=== PATIENT | male | born 1975 | race Caucasian/White ===

== ENCOUNTER 2017-05-09 15:26 | Inpatient (IN) | payer MEDICAID ==
[2017-05-21] MEDS ORDERED: BISACODYL 10 MG SUPP PR PRN (15:07)
[2017-05-21] MEDS: BACLOFEN 20 MG TAB PO SCH ×2 (15:49→23:08)
[2017-05-21] MEDS: MIDODRINE HCL 5 MG TAB PO SCH ×2 (15:49→21:42)
[2017-05-21] MEDS: ACETAMINOPHEN 500 MG TAB PO SCH ×2 (15:49→23:30)
[2017-05-21] MEDS: METHOCARBAMOL 500 MG TAB PO SCH ×2 (15:49→21:41)
[2017-05-21] MEDS: oxyCODONE IR 15 MG TAB PO PRN ×2 (15:50→21:40)
[2017-05-21] MEDS ORDERED: SENNOSIDES/DOCUSATE SODIUM TAB PO PRN (16:16)
--- NOTE | 2017-05-21 16:28 | PDOREHIP ---
Admission [facility] - Admission - 3 Day Assessment Period Admission Date/Day 1: 05/21/17 Day 2: 05/22/17 Day 3: 05/23/17 - Active Diagnoses Comorbidities and Co-existing Conditions at Admission: 10609. None of the Above - Skin Conditions Unhealed Pressure Ulcer (1 or more/Stage 1 or >)-Admission: 0. No
--- NOTE | 2017-05-21 16:28 | PDOREHIP ---
Admission [facility] - Admission - 3 Day Assessment Period Admission Date/Day 1: 05/21/17 Day 2: 05/22/17 Day 3: 05/23/17 - Active Diagnoses Comorbidities and Co-existing Conditions at Admission: 65213. None of the Above - Skin Conditions Unhealed Pressure Ulcer (1 or more/Stage 1 or >)-Admission: 0. No
--- NOTE | 2017-05-21 16:28 | PDOREHIP ---
Admission [facility] - Admission - 3 Day Assessment Period Admission Date/Day 1: 05/21/17 Day 2: 05/22/17 Day 3: 05/23/17 - Active Diagnoses Comorbidities and Co-existing Conditions at Admission: 72442. None of the Above - Skin Conditions Unhealed Pressure Ulcer (1 or more/Stage 1 or >)-Admission: 0. No
[2017-05-21] MEDS ORDERED: SENNOSIDES/DOCUSATE SODIUM TAB PO SCH (21:00)
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
[2017-05-21] MEDS: GABAPENTIN 400 MG CAP PO SCH (21:39)
[2017-05-21] MEDS: POLYETHYLENE GLYCOL 3350 17 GM PKT PO SCH (21:47)
[2017-05-22] MEDS: oxyCODONE IR 15 MG TAB PO PRN (02:00)
[2017-05-22] MEDS: DIAZEPAM 5 MG TAB PO PRN (04:56)
[2017-05-22] MEDS: oxyCODONE IR 5 MG TAB PO PRN ×5 (04:56→19:43)
[2017-05-22] MEDS: METHOCARBAMOL 500 MG TAB PO SCH (05:53)
[2017-05-22 07:35] LABS: PLATELET COUNT 171 10^3/uL (150-400)
[2017-05-22] MEDS: ACETAMINOPHEN 500 MG TAB PO SCH ×3 (08:12→21:57)
[2017-05-22] MEDS: GABAPENTIN 300 MG CAP PO SCH (08:12)
[2017-05-22] MEDS: ASPIRIN EC 325 MG TAB PO SCH (08:12)
[2017-05-22] MEDS: BACLOFEN 20 MG TAB PO SCH ×3 (08:12→21:59)
[2017-05-22] MEDS: ENOXAPARIN 40 MG/0.4 ML SYR SC SCH (08:18)
[2017-05-22] MEDS: MIDODRINE HCL 5 MG TAB PO SCH ×3 (08:19→15:33)
[2017-05-22] MEDS: POLYETHYLENE GLYCOL 3350 17 GM PKT PO SCH ×2 (09:25→21:59)
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
[2017-05-22] MEDS ORDERED: NITROGLYCERIN 2% 1 GM PACKET TP PRN (14:02)
[2017-05-22] MEDS ORDERED: CEPACOL LOZENGE PO PRN (15:59)
[2017-05-22] MEDS ORDERED: BIOTENE DRY MOUTH MOUTHWASH 237 ML BTL MM PRN (15:59)
[2017-05-22] MEDS: GABAPENTIN 400 MG CAP PO SCH (21:59)
[2017-05-22] MEDS ORDERED: NITROGLYCERIN 2% 1 GM PACKET TP ONE (22:03)
[2017-05-23] MEDS: oxyCODONE IR 5 MG TAB PO PRN ×6 (00:22→21:59)
[2017-05-23] MEDS ORDERED: BISACODYL 10 MG SUPP PR SCH ×2 (06:00→15:30)
[2017-05-23] MEDS: ACETAMINOPHEN 500 MG TAB PO SCH ×3 (08:36→21:59)
[2017-05-23] MEDS: BACLOFEN 20 MG TAB PO SCH ×3 (08:37→22:00)
[2017-05-23] MEDS: ASPIRIN EC 325 MG TAB PO SCH (08:37)
[2017-05-23] MEDS: ENOXAPARIN 40 MG/0.4 ML SYR SC SCH (08:37)
[2017-05-23] MEDS: GABAPENTIN 300 MG CAP PO SCH (08:38)
[2017-05-23] MEDS: MIDODRINE HCL 5 MG TAB PO SCH ×3 (08:38→15:34)
[2017-05-23] MEDS: POLYETHYLENE GLYCOL 3350 17 GM PKT PO SCH ×2 (08:39→21:30)
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
[2017-05-23] MEDS: GABAPENTIN 400 MG CAP PO SCH (21:35)
[2017-05-23] MEDS: METHOCARBAMOL 500 MG TAB PO PRN (21:40)
[2017-05-24] MEDS: DIAZEPAM 5 MG TAB PO PRN (00:05)
[2017-05-24] MEDS: oxyCODONE IR 5 MG TAB PO PRN ×2 (01:05→04:24)
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
[2017-05-24] MEDS: MIDODRINE HCL 5 MG TAB PO SCH ×3 (09:06→15:45)
[2017-05-24] MEDS: ACETAMINOPHEN 500 MG TAB PO SCH ×3 (09:38→21:58)
[2017-05-24] MEDS: ASPIRIN EC 325 MG TAB PO SCH (09:39)
[2017-05-24] MEDS: POLYETHYLENE GLYCOL 3350 17 GM PKT PO SCH ×2 (09:39→21:59)
[2017-05-24] MEDS: ENOXAPARIN 40 MG/0.4 ML SYR SC SCH (09:39)
[2017-05-24] MEDS: GABAPENTIN 300 MG CAP PO SCH (09:39)
[2017-05-24] MEDS: BACLOFEN 20 MG TAB PO SCH ×3 (09:39→21:59)
[2017-05-24] MEDS: SENNOSIDES 17.6 MG/10 ML UDL PO SCH (13:27)
[2017-05-24] MEDS: MAGNESIUM HYDROXIDE 30 ML UDCUP PO SCH (13:27)
[2017-05-24] MEDS ORDERED: METHYLNALTREXONE BROMIDE 12 MG/0.6 ML INJ SC ONE (17:30)
[2017-05-24] MEDS: BISACODYL 10 MG SUPP PR SCH (18:40)
[2017-05-24] MEDS: DOCUSATE SODIUM 100 MG CAP PO SCH (21:59)
[2017-05-24] MEDS: GABAPENTIN 400 MG CAP PO SCH (21:59)
[2017-05-25] MEDS: oxyCODONE IR 5 MG TAB PO PRN ×2 (04:20→21:18)
[2017-05-25] MEDS: BACLOFEN 20 MG TAB PO SCH ×3 (07:49→23:17)
[2017-05-25] MEDS: MIDODRINE HCL 5 MG TAB PO SCH ×3 (07:49→16:27)
[2017-05-25] MEDS: ACETAMINOPHEN 500 MG TAB PO SCH ×3 (07:50→23:17)
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
[2017-05-25] MEDS: ENOXAPARIN 40 MG/0.4 ML SYR SC SCH (09:46)
[2017-05-25] MEDS: ASPIRIN EC 325 MG TAB PO SCH (09:46)
[2017-05-25] MEDS: GABAPENTIN 300 MG CAP PO SCH (09:46)
[2017-05-25] MEDS: POLYETHYLENE GLYCOL 3350 17 GM PKT PO SCH ×2 (09:46→21:19)
[2017-05-25] MEDS: DOCUSATE SODIUM 100 MG CAP PO SCH ×2 (09:47→21:18)
[2017-05-25] MEDS: SENNOSIDES 17.6 MG/10 ML UDL PO SCH (14:25)
[2017-05-25] MEDS: MAGNESIUM HYDROXIDE 30 ML UDCUP PO SCH (14:25)
[2017-05-25] MEDS: BISACODYL 10 MG SUPP PR SCH (19:40)
[2017-05-25] MEDS: GABAPENTIN 400 MG CAP PO SCH (21:18)
[2017-05-26] MEDS: oxyCODONE IR 5 MG TAB PO PRN ×2 (07:49→14:53)
[2017-05-26] MEDS: ACETAMINOPHEN 500 MG TAB PO SCH ×3 (07:50→21:15)
[2017-05-26] MEDS: BACLOFEN 20 MG TAB PO SCH ×3 (07:50→21:15)
[2017-05-26] MEDS: MIDODRINE HCL 5 MG TAB PO SCH ×3 (07:57→16:28)
[2017-05-26] MEDS: POLYETHYLENE GLYCOL 3350 17 GM PKT PO SCH ×2 (07:58→20:00)
[2017-05-26] MEDS: ENOXAPARIN 40 MG/0.4 ML SYR SC SCH (07:58)
[2017-05-26] MEDS: GABAPENTIN 300 MG CAP PO SCH (07:58)
[2017-05-26] MEDS: DOCUSATE SODIUM 100 MG CAP PO SCH ×2 (07:59→20:00)
[2017-05-26] MEDS: ASPIRIN EC 325 MG TAB PO SCH (07:59)
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
[2017-05-26] MEDS: MAGNESIUM HYDROXIDE 30 ML UDCUP PO SCH ×2 (14:54→17:22)
[2017-05-26] MEDS: SENNOSIDES 17.6 MG/10 ML UDL PO SCH ×2 (14:54→17:22)
[2017-05-26] MEDS: BISACODYL 10 MG SUPP PR SCH (17:09)
[2017-05-26] MEDS: GABAPENTIN 400 MG CAP PO SCH (21:15)
[2017-05-27] MEDS: oxyCODONE IR 5 MG TAB PO PRN ×2 (00:14→03:57)
[2017-05-27] MEDS: BACLOFEN 20 MG TAB PO SCH ×4 (09:00→21:02)
[2017-05-27] MEDS ORDERED: SENNOSIDES 17.6 MG/10 ML UDL PO PRN (09:17)
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
[2017-05-27] MEDS: ASPIRIN EC 325 MG TAB PO SCH (09:58)
[2017-05-27] MEDS: ACETAMINOPHEN 500 MG TAB PO SCH ×3 (09:59→21:01)
[2017-05-27] MEDS: POLYETHYLENE GLYCOL 3350 17 GM PKT PO SCH ×2 (10:01→21:02)
[2017-05-27] MEDS: GABAPENTIN 300 MG CAP PO SCH ×4 (10:02→21:02)
[2017-05-27] MEDS: MIDODRINE HCL 5 MG TAB PO SCH ×3 (10:03→15:57)
[2017-05-27] MEDS: ENOXAPARIN 40 MG/0.4 ML SYR SC SCH (10:04)
[2017-05-27] MEDS: DOCUSATE SODIUM 100 MG CAP PO SCH ×2 (10:05→21:01)
[2017-05-27] MEDS: METHOCARBAMOL 500 MG TAB PO PRN (12:12)
[2017-05-27] MEDS: MAGNESIUM HYDROXIDE 30 ML UDCUP PO SCH (14:14)
[2017-05-27] MEDS: oxyCODONE CR 15 MG TAB PO SCH ×2 (15:57→21:01)
[2017-05-27] MEDS: BISACODYL 10 MG SUPP PR SCH (18:36)
[2017-05-28] MEDS: GABAPENTIN 300 MG CAP PO SCH ×4 (06:06→21:43)
[2017-05-28] MEDS: MIDODRINE HCL 5 MG TAB PO SCH ×3 (06:06→16:34)
[2017-05-28] MEDS: METHOCARBAMOL 500 MG TAB PO PRN (06:06)
[2017-05-28] MEDS: BISACODYL 10 MG SUPP PR SCH ×2 (06:06→19:25)
[2017-05-28] MEDS: ASPIRIN EC 325 MG TAB PO SCH (08:28)
[2017-05-28] MEDS: DOCUSATE SODIUM 100 MG CAP PO SCH ×2 (08:29→21:43)
[2017-05-28] MEDS: ENOXAPARIN 40 MG/0.4 ML SYR SC SCH (08:29)
[2017-05-28] MEDS: oxyCODONE CR 15 MG TAB PO SCH ×3 (08:29→21:43)
[2017-05-28] MEDS: BACLOFEN 20 MG TAB PO SCH ×3 (08:29→21:42)
[2017-05-28] MEDS: ACETAMINOPHEN 500 MG TAB PO SCH ×3 (08:29→21:38)
[2017-05-28] MEDS: POLYETHYLENE GLYCOL 3350 17 GM PKT PO SCH ×2 (08:32→23:27)
[2017-05-28] MEDS: MAGNESIUM HYDROXIDE 30 ML UDCUP PO SCH (15:04)
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
[2017-05-28] MEDS ORDERED: MAGNESIUM HYDROXIDE 30 ML UDCUP PO PRN (15:56)
[2017-05-29] MEDS ORDERED: SODIUM CL NASAL 45 ML BTL ONE (00:32)
[2017-05-29] MEDS: SODIUM CL NASAL 45 ML BTL EACHNARE PRN ×2 (01:16→03:21)
[2017-05-29] MEDS: MIDODRINE HCL 5 MG TAB PO SCH ×3 (06:19→16:56)
[2017-05-29] MEDS: BISACODYL 10 MG SUPP PR SCH ×2 (06:19→18:26)
[2017-05-29] MEDS: GABAPENTIN 300 MG CAP PO SCH ×4 (06:19→20:55)
[2017-05-29] MEDS: ASPIRIN EC 325 MG TAB PO SCH (08:14)
[2017-05-29] MEDS: ENOXAPARIN 40 MG/0.4 ML SYR SC SCH (08:14)
[2017-05-29] MEDS: METHOCARBAMOL 500 MG TAB PO PRN (08:14)
[2017-05-29] MEDS: oxyCODONE CR 15 MG TAB PO SCH (08:14)
[2017-05-29] MEDS: BACLOFEN 20 MG TAB PO SCH ×3 (08:14→20:55)
[2017-05-29] MEDS: ACETAMINOPHEN 500 MG TAB PO SCH ×3 (08:15→20:55)
[2017-05-29] MEDS: DOCUSATE SODIUM 100 MG CAP PO SCH ×2 (08:52→20:55)
[2017-05-29] MEDS: POLYETHYLENE GLYCOL 3350 17 GM PKT PO SCH (10:10)
[2017-05-29] MEDS ORDERED: POLYETHYLENE GLYCOL 3350 17 GM PKT PO PRN (11:47)
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
[2017-05-29] MEDS: oxyCODONE IR 5 MG TAB PO PRN ×2 (12:37→20:49)
[2017-05-30] MEDS: BISACODYL 10 MG SUPP PR SCH ×2 (04:45→19:45)
[2017-05-30] MEDS: GABAPENTIN 300 MG CAP PO SCH ×4 (05:55→21:56)
[2017-05-30] MEDS: MIDODRINE HCL 5 MG TAB PO SCH ×3 (05:55→16:26)
[2017-05-30] MEDS: ENOXAPARIN 40 MG/0.4 ML SYR SC SCH ×3 (09:00→12:53)
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
[2017-05-30] MEDS: ACETAMINOPHEN 500 MG TAB PO SCH ×3 (10:17→21:56)
[2017-05-30] MEDS: BACLOFEN 20 MG TAB PO SCH ×3 (10:17→21:56)
[2017-05-30] MEDS: ASPIRIN EC 325 MG TAB PO SCH (10:17)
[2017-05-30] MEDS: PSYLLIUM METAMUCIL 1 PKT PO SCH (10:18)
[2017-05-30] MEDS: DOCUSATE SODIUM 100 MG CAP PO SCH (10:19)
[2017-05-30] MEDS: METHOCARBAMOL 500 MG TAB PO PRN ×2 (12:47→21:55)
[2017-05-30] MEDS: CLOTRIMAZOLE 1% 15 GM CRTUBE TP SCH ×2 (16:24→21:56)
[2017-05-30] MEDS: oxyCODONE IR 5 MG TAB PO PRN (21:55)
[2017-05-30] MEDS: oxyCODONE CR 15 MG TAB PO SCH (21:55)
[2017-05-31] MEDS: MIDODRINE HCL 5 MG TAB PO SCH ×3 (06:28→15:44)
[2017-05-31] MEDS: BISACODYL 10 MG SUPP PR SCH ×3 (06:29→18:25)
[2017-05-31] MEDS: GABAPENTIN 300 MG CAP PO SCH ×4 (06:29→20:32)
[2017-05-31] MEDS: oxyCODONE IR 5 MG TAB PO PRN ×3 (06:32→20:32)
[2017-05-31] MEDS: METHOCARBAMOL 500 MG TAB PO PRN ×2 (06:33→20:31)
[2017-05-31] MEDS: ACETAMINOPHEN 500 MG TAB PO SCH ×3 (09:24→20:32)
[2017-05-31] MEDS: ASPIRIN EC 325 MG TAB PO SCH (09:25)
[2017-05-31] MEDS: ENOXAPARIN 40 MG/0.4 ML SYR SC SCH (09:27)
[2017-05-31] MEDS: PSYLLIUM METAMUCIL 1 PKT PO SCH (09:27)
[2017-05-31] MEDS: CLOTRIMAZOLE 1% 15 GM CRTUBE TP SCH ×2 (09:30→20:32)
[2017-05-31] MEDS: BACLOFEN 20 MG TAB PO SCH ×3 (09:30→20:32)
[2017-05-31] MEDS: [UNRECOGNIZED DRUG - OTHER] PO SCH (13:03)
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
[2017-05-31] MEDS: oxyCODONE CR 15 MG TAB PO SCH (20:32)
[2017-06-01] MEDS: GABAPENTIN 300 MG CAP PO SCH ×4 (05:38→21:05)
[2017-06-01] MEDS: METHOCARBAMOL 500 MG TAB PO PRN (05:38)
[2017-06-01] MEDS: oxyCODONE IR 5 MG TAB PO PRN ×3 (05:38→20:20)
[2017-06-01] MEDS: MIDODRINE HCL 5 MG TAB PO SCH ×3 (05:38→15:18)
[2017-06-01] MEDS: BISACODYL 10 MG SUPP PR SCH ×2 (06:09→18:38)
[2017-06-01] MEDS: ACETAMINOPHEN 500 MG TAB PO SCH ×3 (08:30→21:05)
[2017-06-01] MEDS: ASPIRIN EC 325 MG TAB PO SCH (08:31)
[2017-06-01] MEDS: BACLOFEN 20 MG TAB PO SCH ×3 (08:31→21:05)
[2017-06-01] MEDS: ENOXAPARIN 40 MG/0.4 ML SYR SC SCH (08:32)
[2017-06-01] MEDS: CLOTRIMAZOLE 1% 15 GM CRTUBE TP SCH ×2 (08:32→21:07)
[2017-06-01] MEDS: PSYLLIUM METAMUCIL 1 PKT PO SCH (08:33)
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
[2017-06-01] MEDS: [UNRECOGNIZED DRUG - OTHER] PO SCH (12:40)
[2017-06-01] MEDS: oxyCODONE CR 15 MG TAB PO SCH (21:06)
[2017-06-02] MEDS: oxyCODONE IR 5 MG TAB PO PRN ×3 (00:55→19:54)
[2017-06-02] MEDS: METHOCARBAMOL 500 MG TAB PO PRN ×2 (03:20→21:18)
[2017-06-02] MEDS: MIDODRINE HCL 5 MG TAB PO SCH ×3 (05:56→16:01)
[2017-06-02] MEDS: GABAPENTIN 300 MG CAP PO SCH ×4 (05:56→21:18)
[2017-06-02] MEDS: BISACODYL 10 MG SUPP PR SCH ×2 (05:57→18:01)
[2017-06-02] MEDS: ENOXAPARIN 40 MG/0.4 ML SYR SC SCH (07:33)
[2017-06-02] MEDS: BACLOFEN 20 MG TAB PO SCH ×2 (08:30→21:18)
[2017-06-02] MEDS: ACETAMINOPHEN 500 MG TAB PO SCH ×3 (08:30→21:18)
[2017-06-02] MEDS: ASPIRIN EC 325 MG TAB PO SCH (08:30)
[2017-06-02] MEDS: CLOTRIMAZOLE 1% 15 GM CRTUBE TP SCH (08:31)
[2017-06-02] MEDS: PSYLLIUM METAMUCIL 1 PKT PO SCH (08:31)
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
[2017-06-02] MEDS: oxyCODONE CR 15 MG TAB PO SCH (21:18)
[2017-06-03] MEDS: METHOCARBAMOL 500 MG TAB PO PRN ×2 (03:51→21:37)
[2017-06-03] MEDS: oxyCODONE IR 5 MG TAB PO PRN ×2 (03:52→16:30)
[2017-06-03] MEDS: CLOTRIMAZOLE 1% 15 GM CRTUBE TP SCH ×3 (05:31→21:21)
[2017-06-03] MEDS: BACLOFEN 20 MG TAB PO SCH ×3 (05:52→21:37)
[2017-06-03] MEDS: MIDODRINE HCL 5 MG TAB PO SCH ×3 (05:52→15:32)
[2017-06-03] MEDS: GABAPENTIN 300 MG CAP PO SCH ×4 (05:52→21:36)
[2017-06-03] MEDS: BISACODYL 10 MG SUPP PR SCH ×2 (06:08→20:48)
[2017-06-03] MEDS: ACETAMINOPHEN 500 MG TAB PO SCH ×3 (09:30→21:36)
[2017-06-03] MEDS: ASPIRIN EC 325 MG TAB PO SCH (09:30)
[2017-06-03] MEDS: ENOXAPARIN 40 MG/0.4 ML SYR SC SCH (09:31)
[2017-06-03] MEDS: PSYLLIUM METAMUCIL 1 PKT PO SCH (09:32)
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
[2017-06-03] MEDS: oxyCODONE CR 15 MG TAB PO SCH (21:37)
[2017-06-04] MEDS: METHOCARBAMOL 500 MG TAB PO PRN ×3 (02:59→21:16)
[2017-06-04] MEDS: BACLOFEN 20 MG TAB PO SCH ×4 (03:00→21:13)
[2017-06-04] MEDS ORDERED: BACLOFEN 20 MG TAB PO SCH (03:30)
[2017-06-04] MEDS: MIDODRINE HCL 5 MG TAB PO SCH ×3 (06:06→17:31)
[2017-06-04] MEDS: GABAPENTIN 300 MG CAP PO SCH ×4 (06:06→21:14)
[2017-06-04] MEDS: BISACODYL 10 MG SUPP PR SCH ×2 (06:06→18:21)
[2017-06-04] MEDS: ACETAMINOPHEN 500 MG TAB PO SCH ×3 (08:43→21:13)
[2017-06-04] MEDS: CLOTRIMAZOLE 1% 15 GM CRTUBE TP SCH ×2 (08:43→21:16)
[2017-06-04] MEDS: ENOXAPARIN 40 MG/0.4 ML SYR SC SCH (08:43)
[2017-06-04] MEDS: ASPIRIN EC 325 MG TAB PO SCH (08:43)
[2017-06-04] MEDS: PSYLLIUM METAMUCIL 1 PKT PO SCH (09:00)
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
[2017-06-04] MEDS: oxyCODONE CR 15 MG TAB PO SCH (21:14)
[2017-06-04] MEDS: oxyCODONE IR 5 MG TAB PO PRN (21:16)
[2017-06-05] MEDS: BACLOFEN 20 MG TAB PO SCH ×4 (03:30→21:44)
[2017-06-05] MEDS: MIDODRINE HCL 5 MG TAB PO SCH ×3 (06:01→14:54)
[2017-06-05] MEDS: GABAPENTIN 300 MG CAP PO SCH ×4 (06:01→21:44)
[2017-06-05] MEDS: BISACODYL 10 MG SUPP PR SCH ×2 (06:01→18:29)
[2017-06-05] MEDS: METHOCARBAMOL 500 MG TAB PO PRN (06:01)
[2017-06-05] MEDS: ENOXAPARIN 40 MG/0.4 ML SYR SC SCH (08:09)
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
[2017-06-05] MEDS: ACETAMINOPHEN 500 MG TAB PO SCH ×3 (08:31→21:44)
[2017-06-05] MEDS: PSYLLIUM METAMUCIL 1 PKT PO SCH (08:32)
[2017-06-05] MEDS: ASPIRIN EC 325 MG TAB PO SCH (08:32)
[2017-06-05] MEDS: CLOTRIMAZOLE 1% 15 GM CRTUBE TP SCH ×2 (08:32→21:49)
[2017-06-05] MEDS: oxyCODONE IR 5 MG TAB PO PRN ×2 (12:29→20:16)
[2017-06-05] MEDS: oxyCODONE CR 15 MG TAB PO SCH (21:43)
[2017-06-06] MEDS: BACLOFEN 20 MG TAB PO SCH ×3 (02:02→20:56)
[2017-06-06] MEDS: BISACODYL 10 MG SUPP PR SCH ×2 (05:53→18:26)
[2017-06-06] MEDS: GABAPENTIN 300 MG CAP PO SCH ×4 (05:54→20:56)
[2017-06-06] MEDS: MIDODRINE HCL 5 MG TAB PO SCH ×3 (05:54→15:27)
[2017-06-06] MEDS: CLOTRIMAZOLE 1% 15 GM CRTUBE TP SCH (08:12)
[2017-06-06] MEDS: ACETAMINOPHEN 500 MG TAB PO SCH ×3 (08:13→20:56)
[2017-06-06] MEDS: ASPIRIN EC 325 MG TAB PO SCH (08:14)
[2017-06-06] MEDS: PSYLLIUM METAMUCIL 1 PKT PO SCH (09:43)
[2017-06-06] MEDS: METHOCARBAMOL 500 MG TAB PO PRN (09:43)
[2017-06-06] MEDS: ENOXAPARIN 40 MG/0.4 ML SYR SC SCH (09:44)
[2017-06-06] MEDS ORDERED: BACLOFEN 20 MG TAB PO SCH (11:00)
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
[2017-06-06] MEDS: oxyCODONE CR 15 MG TAB PO SCH (20:56)
[2017-06-06] MEDS: oxyCODONE IR 5 MG TAB PO PRN (21:18)
[2017-06-07] MEDS: MIDODRINE HCL 5 MG TAB PO SCH ×3 (06:02→17:17)
[2017-06-07] MEDS: BACLOFEN 20 MG TAB PO SCH ×3 (06:03→21:12)
[2017-06-07] MEDS: GABAPENTIN 300 MG CAP PO SCH ×4 (06:04→21:10)
[2017-06-07] MEDS: BISACODYL 10 MG SUPP PR SCH ×2 (06:05→18:24)
[2017-06-07] MEDS: ASPIRIN EC 325 MG TAB PO SCH (08:25)
[2017-06-07] MEDS: ACETAMINOPHEN 500 MG TAB PO SCH ×3 (08:25→21:10)
[2017-06-07] MEDS: PSYLLIUM METAMUCIL 1 PKT PO SCH (08:37)
[2017-06-07] MEDS: ENOXAPARIN 40 MG/0.4 ML SYR SC SCH (08:46)
--- NOTE | 2017-06-07 09:51 | SOAPPROG ---
SOAP Progress Note Assessment/Plan: Assessment: MARCOS C, C4 motor incomplete tetraplegia. Improved to MARCOS D. * Transfers now without sliding board, CGA. Improved to stand pivot with front wheeled walker. Has walked 75 feet with front wheeled walker. HE NEEDS FREQUENT HEEL CORD AND HAND INTRINSIC STRETCHING. Pain management. Adequate control . * Continue oxycodone CR 10 mg twice daily at breakfast and midday and 15 mg at HS. Continue continue oxycodone immediate release 5-15 mg q.3 hours p.r.n.. Continue methocarbamol, gabapentin and acetaminophen. Spasticity, particularly active spasms of the left lower limb, improving. * Continue baclofen for more passive spasms. Will discontinue nighttime dose as he has no issues with spasticity overnight. Change dosing otherwise to 30 mg twice daily at 6:00 a.m. and 1400 and continue 20 mg at HS to continue 80 mg total per day. No need for other considerations such as targeted injections at this time. wUOLD HOLD BACLOFEN AT CURRENT DOSAGE. HE MAY BE USING SOME OF HIS SPASTICITY TO WALK ON. * Able to control spasms with activity by dorsiflexing left foot. Neurogenic bladder. Mark catheter is leaking, changed yesterday 06/05/2017. * Failed a voiding trial while catheter was out. IT MAY BE WORTHWHILE TO REPEAT VOIDING TRIAL IN 3 DAYS, BLADDER FUNCTION MAY CHANGE WITH WITH NEUROLOGIC RECOVERY. HE IS CONTINENT OF BOWEL * Methocarbamol, gabapentin, and opiates may be affecting bladder emptying. * He lacks dexterity to learn to self cath. If he is unable to void will replace catheter and postpone further voiding trials to after he discharges to [facility]. Neurogenic bowel. Responding to bowel program. * Continue scheduled polyethylene glycol. Continue bisacodyl suppository at 0600 and 1800. WILL ORDER PREPERATION H Blood pressure management. Continue midodrine. Monitor blood pressure. * If blood pressure becomes high, we will taper or discontinue midodrine. Observe for signs or symptoms of autonomic dysreflexia(acute hypertension, piloerection, headache, etc), and treat with nitroglycerin paste if necessary. Low risk overall for autonomic dysreflexia, evaluate for other causes if he is symptomatic. Risk for pulmonary complications with a C4 motor incomplete tetraplegia. * Continue incentive spirometry. He has been doing well with this at the hospital. Skin. Able to reposition himself and has sensation over sacrum and buttocks. Kian score 15-16, low risk for pressure ulcer. * Changed turning schedule to Q 4 hours overnight. NO NEW BREAKDOWN IN SACRAL OR PERINEAL REGION * Continue of observing closely to catch any incipient skin changes. Chronic/stable conditions: * Concussion, with normal memory and cognition.Speech and Language Pathology has signed off. * Herpetic lesion on right buttocks c/w shingles. All lesions are crusted or in the process of healing. Discontinued isolation 05/30/2017. * Left carotid artery dissection. Continue aspirin. The plan is to continue it for a total of 3 months. 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 * VT prophylaxis. Continue enoxaparin prophylactic dose until his mobility improves. * History of panic attack: Leave diazepam on the medication list for now, plan to discontinue if not using. * Labs 05/26/2017 not C/W hypercalcemia of immobility. Spinal cord education: Nursing and staff will also be working with the staff on education topics from the spinal cord education manual. Will transfer to [facility] tentatively on 06/10/2017 for longer term spinal cord rehabilitation.. Plan: 06/07/17 09:54 Subjective: He c/o distal enile pain due to the mark. He reports increased UE spasticity with lower extremity movement. He denies spontaneous spasticity. He is ambulating at least 100 feet. He reports his LE motor function is improving. Objective: Vital Signs Temp Pulse Resp BP Pulse Ox 36.4 C 60 16 82/59 L 96 06/07/17 06:50 06/07/17 06:50 06/07/17 06:50 06/07/17 06:50 06/07/17 06:50 Laboratory Results 05/22/17 05:45 05/26/17 06:00 06/06/17 06/07/17 06/08/17 05:59 05:59 04:59 Intake Total 1490 3310 350 Output Total 4200 4000 Balance -2710 -690 350 Physical Exam - Physical Exam General Appearance: WD/WN, alert, no apparent distress Respiratory: lungs clear, normal breath sounds Cardiac/Chest: No edema Abdomen: non-tender, soft Extremities: No calf tenderness, No swelling, No Dick's sign Neuro/Psych: alert, oriented x 3, motor weakness, No speech abnormalities ( incomplete C4 QUADRIPLEGIA. LEFT GREATER THAN RIGHT HEEL CORD TIGHTNESS. 3+4-/ 5 RIGHT TA , 3-/5 LEFT TA DUE TO HEEL CORD TIGHTNESS. 6 BEAT LEFT ANKLE CLONUS. Hand intrinsics are tight. ) ICD10 Worksheet Patient Problems: Problems Problem Status Onset Acute tetraplegia Acute
[2017-06-07] MEDS: PHENYLEPHRINE/SHK LV/MO/PET,WH 1 APP/GM OINT PR PRN (21:00)
[2017-06-07] MEDS: oxyCODONE CR 15 MG TAB PO SCH (21:11)
[2017-06-08] MEDS: GABAPENTIN 300 MG CAP PO SCH ×4 (06:03→21:16)
[2017-06-08] MEDS: MIDODRINE HCL 5 MG TAB PO SCH ×3 (06:03→17:13)
[2017-06-08] MEDS: BACLOFEN 20 MG TAB PO SCH ×3 (06:04→21:16)
[2017-06-08] MEDS: BISACODYL 10 MG SUPP PR SCH ×2 (06:04→18:20)
[2017-06-08] MEDS: PSYLLIUM METAMUCIL 1 PKT PO SCH (08:12)
[2017-06-08] MEDS: ENOXAPARIN 40 MG/0.4 ML SYR SC SCH (08:13)
[2017-06-08] MEDS: ACETAMINOPHEN 500 MG TAB PO SCH ×3 (08:13→21:16)
[2017-06-08] MEDS: ASPIRIN EC 325 MG TAB PO SCH (08:13)
[2017-06-08] MEDS: PHENYLEPHRINE/SHK LV/MO/PET,WH 1 APP/GM OINT PR PRN (08:29)
--- NOTE | 2017-06-08 09:32 | SOAPPROG ---
SOAP Progress Note Assessment/Plan: Assessment: MARCOS C, C4 motor incomplete tetraplegia. Improved to MARCOS D. * Transfers now without sliding board, CGA. Improved to stand pivot with front wheeled walker. Has walked 75 feet with front wheeled walker. HE NEEDS FREQUENT HEEL CORD AND HAND INTRINSIC STRETCHING--DISCUSSED WITH ASHLEE RODRÍGUEZ INFORMED THAT THIS IS A NON-SKILLED SERVICE AND SHOULD BE DOEN BY NURSING STAFF AND FAMILY MEMBERS THAT HAVE BEEN TAUGHT. HE IS ABLE TO PERFORM PRESSURE RELIEF WHILE SITTING. Pain management. Adequate control . * Continue oxycodone CR 10 mg twice daily at breakfast and midday and 15 mg at HS. Continue continue oxycodone immediate release 5-15 mg q.3 hours p.r.n.. Continue methocarbamol, gabapentin and acetaminophen. Spasticity, particularly active spasms of the left lower limb, improving. SOME UE DISCOMFORT DUE TO SPASTICITY BUT NOT ENOUGH TO WARRANT INCREASING BACLOFEN, HOWEVER PT AND OT WILL NOTE IF IT IS INTERFERING WITH PROGRESS IN THERAPIES. * Continue baclofen for more passive spasms. Will discontinue nighttime dose as he has no issues with spasticity overnight. Change dosing otherwise to 30 mg twice daily at 6:00 a.m. and 1400 and continue 20 mg at HS to continue 80 mg total per day. No need for other considerations such as targeted injections at this time. WOULD HOLD BACLOFEN AT CURRENT DOSAGE. HE MAY BE USING SOME OF HIS SPASTICITY TO WALK ON. * Able to control spasms with activity by dorsiflexing left foot. Neurogenic bladder. Arreola catheter is leaking, changed yesterday 06/05/2017. * Failed a voiding trial while catheter was out. IT MAY BE WORTHWHILE TO REPEAT VOIDING TRIAL IN 3 DAYS, BLADDER FUNCTION MAY CHANGE WITH WITH NEUROLOGIC RECOVERY. HE IS CONTINENT OF BOWEL * Methocarbamol, gabapentin, and opiates may be affecting bladder emptying. * He lacks dexterity to learn to self cath. If he is unable to void will replace catheter and postpone further voiding trials to after he discharges to [facility]. Neurogenic bowel. Responding to bowel program. * Continue scheduled polyethylene glycol. Continue bisacodyl suppository at 0600 and 1800. WILL ORDER PREPERATION H Blood pressure management. Continue midodrine. Monitor blood pressure. * If blood pressure becomes high, we will taper or discontinue midodrine. Observe for signs or symptoms of autonomic dysreflexia(acute hypertension, piloerection, headache, etc), and treat with nitroglycerin paste if necessary. Low risk overall for autonomic dysreflexia, evaluate for other causes if he is symptomatic. Risk for pulmonary complications with a C4 motor incomplete tetraplegia. * Continue incentive spirometry. He has been doing well with this at the hospital. Skin. Able to reposition himself and has sensation over sacrum and buttocks. Kian score 15-16, low risk for pressure ulcer. * Changed turning schedule to Q 4 hours overnight. NO NEW BREAKDOWN IN SACRAL OR PERINEAL REGION * Continue of observing closely to catch any incipient skin changes. Chronic/stable conditions: * Concussion, with normal memory and cognition.Speech and Language Pathology has signed off. * Herpetic lesion on right buttocks c/w shingles. All lesions are crusted or in the process of healing. Discontinued isolation 05/30/2017. * Left carotid artery dissection. Continue aspirin. The plan is to continue it for a total of 3 months. 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 * VT prophylaxis. Continue enoxaparin prophylactic dose until his mobility improves. * History of panic attack: Leave diazepam on the medication list for now, plan to discontinue if not using. * Labs 05/26/2017 not C/W hypercalcemia of immobility. Spinal cord education: Nursing and staff will also be working with the staff on education topics from the spinal cord education manual. Will transfer to [facility] tentatively on 06/10/2017 for longer term spinal cord rehabilitation.. Plan: 06/07/17 09:54 06/08/17 09:35 Subjective: HE REPORTS LUE SPASTICITY WITH LLE ANKLE DF. HE REPORTS IT IS NOT PAINFUL OR INHIBITING ACTIVITIES AT THIS POINT Objective: Vital Signs Temp Pulse Resp BP Pulse Ox 36.9 C 95 16 131/72 H 95 06/08/17 07:15 06/08/17 07:15 06/08/17 07:15 06/08/17 07:15 06/08/17 07:15 Laboratory Results 05/22/17 05:45 05/26/17 06:00 06/07/17 06/08/17 06/09/17 06:59 05:59 05:59 Intake Total 350 Output Total 1400 Balance -1050 Physical Exam - Physical Exam General Appearance: WD/WN, alert, no apparent distress Respiratory: lungs clear Cardiac/Chest: No edema Abdomen: non-tender, soft Skin: warm/dry, No decubitus Extremities: swelling, Dick's sign, other (TIGHT SHOULDER INTRINSICS, ESPECIALLY WITH GLENOHUMERAL ABDUCTION ABOVE 90 DEGREES. TIGHT HAND INTRINSICS. TIGHT HEEL CORDS) Neuro/Psych: alert, normal mood/affect, oriented x 3, motor weakness (C4 INCOMPLETE QUAD. POSITIVE HOFFMANS. 8 BEAT ANKLE CLONUS) ICD10 Worksheet Patient Problems: Problems Problem Status Onset Acute tetraplegia Acute
[2017-06-08] MEDS: CLOTRIMAZOLE 1% 15 GM CRTUBE TP SCH ×2 (12:23→21:21)
[2017-06-08] MEDS: oxyCODONE CR 15 MG TAB PO SCH (21:17)
[2017-06-09] MEDS: MIDODRINE HCL 5 MG TAB PO SCH ×3 (06:09→15:03)
[2017-06-09] MEDS: BACLOFEN 20 MG TAB PO SCH ×3 (06:09→21:44)
[2017-06-09] MEDS: GABAPENTIN 300 MG CAP PO SCH ×4 (06:10→21:43)
[2017-06-09] MEDS: BISACODYL 10 MG SUPP PR SCH ×2 (06:10→18:18)
[2017-06-09] MEDS: PSYLLIUM METAMUCIL 1 PKT PO SCH (08:28)
[2017-06-09] MEDS: CLOTRIMAZOLE 1% 15 GM CRTUBE TP SCH ×2 (08:29→21:51)
[2017-06-09] MEDS: ASPIRIN EC 325 MG TAB PO SCH (08:30)
[2017-06-09] MEDS: ACETAMINOPHEN 500 MG TAB PO SCH ×3 (08:30→21:43)
[2017-06-09] MEDS: ENOXAPARIN 40 MG/0.4 ML SYR SC SCH (08:34)
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
--- NOTE | 2017-06-09 12:34 | PDOREHIP ---
Admission [facility] - Admission - 3 Day Assessment Period Admission Date/Day 1: 05/21/17 Day 2: 05/22/17 Day 3: 05/23/17 Discharge [facility] - Discharge - 3 Day Assessment Period 2 Days Prior to Anticipated Discharge Date: 06/08/17 1 Day Prior to Anticipated Discharge Date: 06/09/17 Anticipated Discharge Date: 06/10/17 - Discharge Skin Conditions Unhealed Pressure Ulcer (1 or more/Stage 1 or >)-Discharge: 0. No
[2017-06-09] MEDS: PHENYLEPHRINE/SHK LV/MO/PET,WH 1 APP/GM OINT PR PRN (21:42)
[2017-06-09] MEDS: oxyCODONE CR 15 MG TAB PO SCH (21:44)
[2017-06-10] MEDS: GABAPENTIN 300 MG CAP PO SCH (06:05)
[2017-06-10] MEDS: BACLOFEN 20 MG TAB PO SCH (06:05)
[2017-06-10] MEDS: BISACODYL 10 MG SUPP PR SCH (06:05)
[2017-06-10] MEDS: MIDODRINE HCL 5 MG TAB PO SCH (06:05)
[2017-06-10] MEDS: ASPIRIN EC 325 MG TAB PO SCH (08:17)
[2017-06-10] MEDS: ACETAMINOPHEN 500 MG TAB PO SCH (08:17)
[2017-06-10] MEDS: PSYLLIUM METAMUCIL 1 PKT PO SCH (08:21)
[2017-06-10] MEDS: CLOTRIMAZOLE 1% 15 GM CRTUBE TP SCH (08:27)
[2017-06-10 08:59] VITALS: BP 103/78; PULSE 88; RESP 18; TEMP 97.9; O2SAT 96
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
== END 2017-06-10 11:00 | DRG 52 ==
LOC: BREH 05-21 14:13
PROVIDERS: ADMIT Internal Medicine; ATTEND Internal Medicine
PROC: F08Z7ZZ Vocational Activities and Functional Community or Work Reintegration Skills Treatment (ICD-10-PCS; principal; 2017-05-21)
PROC: F07M3ZZ Motor Function Treatment of Musculoskeletal System - Whole Body (ICD-10-PCS; principal; 2017-05-21)
PROC: F0636ZZ Communicative/Cognitive Integration Skills Treatment of Neurological System - Whole Body (ICD-10-PCS; principal; 2017-05-21)
DX: G82.52 Quadriplegia, C1-C4 incomplete (principal); I77.71 Dissection of carotid artery; K59.2 Neurogenic bowel, not elsewhere classified; S14.13 Anterior cord syndrome of cervical spinal cord; S06.0X9D Concussion with loss of consciousness of unspecified duration, subsequent encounter; N31.9 Neuromuscular dysfunction of bladder, unspecified; V18.0XXD Pedal cycle driver injured in noncollision transport accident in nontraffic accident, subsequent encounter
CPT/HCPCS: 92507-GN; 92522-GN; 92610-GN; 97110-GO; 97110-GP; 97112-GO; 97112-GP; 97116-GP; 97140-GO; 97162-GP; 97167-GO; 97530-GO; 97530-GP; 97535-GO; 97542-GP; 99368-GO; J1650; J2212